=== PATIENT | female | born 1935 | race Caucasian/White ===

== ENCOUNTER 2022-02-15 15:56 | Inpatient (IN) | payer MEDICARE, BC, SELFPAY ==
[2022-02-15] VITALS (10 sets, daily range): BP systolic 111–161; BP diastolic 72–96; PULSE 70–83; RESP 16–20; TEMP 36.8–37.3; O2SAT 92–97; BMI 23.5; BMI 23.1
--- NOTE | 2022-02-15 16:52 | ED_ITS ---
HPI - General Adult General Time Seen by Provider: 16:53 Date Seen: 02/15/22 Chief complaint: Abdominal Pain Stated complaint: Bowel Distress Time Seen by Provider: 02/15/22 16:42 Source: patient History of Present Illness HPI narrative: Terri is a 86-year-old female past medical history includes IBS, hypertension, depression, atrial fibrillation, esophageal dysmotility, status post partial small-bowel resection, bilateral inguinal hernia repair and appendectomy and hysterectomy presents emerged department with family with abdominal pain. Patient states she went to bed last night feeling well, she woke up this morning around 4:00 a.m. with abdominal cramping, she had a bowel movement early this morning that was hard, no blood, she had to manually disimpact. She has had ongoing dry heaves throughout the day, no vomiting, she has not taken her medications. She has not been eating or drinking much today. She denies any urinary complaints, she denies any upper respiratory complaints. She states she has not been passing gas. No fevers, chills myalgias arthralgias, she denies any back pain. The pain is crampy in nature comes and goes, she feels like it is going to go away and then returns. She has minimal pain at this time. Related Data Home Medications Medication Instructions Recorded Confirmed amiodarone 200 mg tablet mg PO DAILY 02/14/22 02/14/22 apixaban 5 mg tablet 5 mg PO BID 02/14/22 02/14/22 cranberry concentrate-ascorbic cap PO 02/14/22 02/14/22 acid 140 mg-100 mg capsule (Cranberry Plus Vitamin C) dicyclomine 10 mg capsule 1 - 2 mg PO .Daily as needed PRN 02/14/22 02/14/22 cap estradiol 0.01% (0.1 mg/gram) 1 VAGINAL .Twice Weekly 02/14/22 02/14/22 vaginal cream furosemide 20 mg tablet mg PO DAILY 02/14/22 02/14/22 glucosamine sulfate 500 mg capsule 1,000 mg PO DAILY 02/14/22 02/14/22 hydrochlorothiazide 25 mg tablet mg PO DAILY 02/14/22 02/14/22 hydrocortisone 2.5 % rectal cream 2.5 ea TOPICAL BID 02/14/22 02/14/22 with applicator lactic acid applic TOPICAL 02/14/22 02/14/22 lisinopril 10 mg tablet mg PO DAILY 02/14/22 02/14/22 loperamide 2 mg capsule mg PO .As Needed PRN 02/14/22 02/14/22 oxybutynin chloride 10 mg 10 mg PO DAILY 02/14/22 02/14/22 tablet,extended release 24 hr polyethylene glycol 3350 17 g PO .Daily as needed PRN 02/14/22 02/14/22 gram/dose oral powder potassium chloride 20 mEq 20 meq PO BID 02/14/22 02/14/22 tablet,extended release(part/cryst) Allergies Allergy/AdvReac Type Severity Reaction Status Date / Time house dust Allergy Unknown Verified 02/15/22 16:14 Molds & Smuts Allergy Unknown Uncoded 02/15/22 16:14 Review of Systems Status of ROS: Reports: 10 or more systems reviewed and unremarkable except as noted in History and below [facility] Medical History History of depression Surgical History History of appendectomy History of bilateral inguinal hernia repair History of bilateral knee replacement History of cataract extraction History of section (2019) History of hysterectomy History of total hip replacement Social History Smoking Status: Former smoker Do you use any of these nicotine containing products: None Second hand tobacco smoke exposure: No How often do you have a drink containing alcohol: never AUDIT-C Alcohol total score: 0 Non-prescribed substance use: denies use Exam Const: Vital Signs, click to edit/add: Vital Signs - 24 hr 02/15/22 16:06 02/15/22 16:55 02/15/22 17:30 Temperature 98.7 F Pulse Rate [Pulse Oximeter] 75 70 73 Respiratory Rate 20 16 20 Blood Pressure [Le ft Upper Arm] 111/74 128/77 124/73 Pulse Oximetry 96 97 92 02/15/22 18:00 02/15/22 19:00 Temperature Pulse Rate [Pulse Oximeter] 72 78 Respiratory Rate 20 20 Blood Pressure [Le ft Upper Arm] 126/72 136/81 Pulse Oximetry 93 97 Common normals: no apparent distress and oriented x3 HENMT: Common normals: normocephalic Head and scalp: normocephalic Eye: Common normals: PERRL and EOMs intact bilaterally Pupil: PERRL Neck & C-Spine: Common normals: full ROM, no lymphadenopathy and supple Chest: Common normals: inspection of chest normal Resp: Common normals: normal respiratory effort and clear to auscultation bilaterally Auscultation: clear to auscultation bilaterally Cardio: Common normals: S1 normal heart sound and S2 normal heart sound Heart sounds: S1 normal and S2 normal GI: Common normals: soft to palpation Palpation: soft Other: Mild tenderness to palpation all quadrants, hypoactive bowel sounds : Common normals: no CVA tenderness Bladder/kidney exam: no CVA tenderness Back & Pelvis: Common normals: no CVA tenderness, thoracic and lumbar spine normal to inspection and no thoracic nor lumbar tenderness Extremity: Common normals: normal to inspection and full ROM Neuro: Common normals: oriented x3 and moves all extremities Course Course Hospital Course: 4:40 PM: Vitals are normal, workup will include IV peripheral, 125 mL maintenance fluids 0.9 normal saline, will obtain basic labs including CBC, CMP, lipase and CRP, for nausea 4 mg IV Zofran, patient has no pain at this time. Will await lab results to see if further imaging will be obtained. Differential diagnosis include aortic aneurysm, mesentery ischemia, bowel perforation, volvulus and bowel obstruction. Other considerations include IBD, IBS, pancreatitis hepatitis gastritis GERD diverticulitis pyelonephritis UTI renal stone ovarian cyst torsion as well as all etiologies 6:00 PM: Patient was updated on her lab results, CBC showed leukocytosis 50.5, neutrophil percentage of 94.8 and neutrophil # of 14.7, CRP negative, metabolic panel within normal limits, will obtain CT abdomen pelvis with IV contrast rule out obstruction, patient's pain has been controlled. 8:00 PM: Updated patient on imaging results, which show high-grade distal small-bowel obstruction with transition in the right lower quadrant probably due to adhesions there is slight twisting of the mesentery in the right lower quadrant with volvulus not completely excluded. Surgical consultation recommended. Also gastric wall thickening and mucosal enhancement along the body and the antrum of the stomach which is decompressed, findings could be seen with gastritis or peptic ulcer disease. Dr. Remi KWONG at 7:23 p.m. Spoke with surgery on-call she recommended admission to hospitalist, NG tube and bowel rest, this was explained to patient she was in agreement this plan. Reevaluation(s) Reevaluation #1: Call made to Dr. Rhonda KWONG hospitalists [facility] [employer] and he accepts care of the patient to a [facility] bed. All questions answered. Time: 20:51 Vital Signs Vital signs: Initial Vital Signs Temperature 98.7 F 02/15/22 16:06 Temperature Source Temporal Artery Scan 02/15/22 16:06 Pulse Rate 75 02/15/22 16:06 Pulse Rhythm 02/15/22 16:06 Respiratory Rate 20 02/15/22 16:06 Blood Pressure 111/74 02/15/22 16:06 Blood Pressure Mean 86 02/15/22 16:06 Blood Pressure Position Sitting 02/15/22 16:06 Pulse Oximetry 96 02/15/22 16:06 Oxygen Delivery Method 02/15/22 16:06 Vital Signs Temperature 98.7 F 02/15/22 16:06 Pulse Rate 75 02/15/22 16:06 Respiratory Rate 20 02/15/22 16:06 Blood Pressure 111/74 02/15/22 16:06 Pulse Oximetry 96 02/15/22 16:06 Temperature 98.7 F 02/15/22 16:06 Pulse Rate 78 02/15/22 19:00 Respiratory Rate 20 02/15/22 19:00 Blood Pressure 136/81 02/15/22 19:00 Pulse Oximetry 97 02/15/22 19:00 Medical Decision Making Lab Data Labs: Lab Results 02/15/22 02/15/22 Range/Units 17:00 17:07 WBC 15.52 H (4.50-11.00) K/uL RBC 4.48 (4.00-5.20) m/uL Hgb 14.4 (12.0-16.0) gm/dL Hct 42.1 (33.0-51.0) % MCV 94 (80-100) fL MCH 32 (26-34) pg MCHC 34 (32-36) gm/dL RDW Coeff of Trish 12.5 (11.5-15.5) % Plt Count 213 (140-440) K/uL Neut % (Auto) 94.8 H (42.0-72.0) % Lymph % (Auto) 2.3 L (20-44) % [place] % (Auto) 2.6 (0.0-11.0) % Eos % (Auto) 0.0 (0.0-7.0) % Baso % (Auto) 0.1 (0.0-3.0) % Neut # (Auto) 14.70 H (1.7-7.0) K/uL Lymph # (Auto) 0.40 L (0.90-2.90) K/uL [place] # (Auto) 0.40 (0.00-0.90) K/UL Eos # (Auto) 0.00 (0.00-0.50) K/uL Baso # (Auto) 0.00 (0.00-0.30) K/uL Abs Immat Gran (auto) 0.03 (0.00-0.30) K/uL Sodium 137 (135-149) mmol/L Potassium 4.0 (3.6-5.1) mmol/L Chloride 97 (96-114) mmol/L Carbon Dioxide 32 (20-32) mmol/L BUN 28 (7-30) mg/dL Creatinine 0.7 (0.5-1.5) mg/dL Estimated Creat Clear 39.27 Estimated GFR 84 ml/min Glucose 152 H (60-115) mg/dL Calcium 10.1 (8.4-10.6) mg/dL Total Bilirubin 0.9 (0.1-1.5) mg/dL AST 31 (12-35) U/L ALT 24 (4-35) U/L Alkaline Phosphatase 96 (40-150) U/L C-Reactive Protein < 0.5 L (0.5-1.0) mg/dL Total Protein 6.4 (6.0-8.3) g/dL Albumin 4.3 (3.3-5.0) g/dL Lipase 69 (23-300) U/L Discharge Plan Discharge Clinical Impression: Small bowel obstruction Prescriptions: No Action polyethylene glycol 3350 17 gram/dose powder PO .Daily as needed PRN0RF lactic acid Cream topical 0RF dicyclomine 10 mg capsule 1 - 2 mg PO .Daily as needed PRN0RF oxybutynin chloride 10 mg tablet extended release 24 hr 10 mg PO DAILY 0RF apixaban 5 mg tablet 5 mg PO BID 0RF loperamide 2 mg capsule PO .As Needed PRN0RF estradiol 0.01 % (0.1 mg/gram) cream 1 vaginal .Twice Weekly 0RF hydrochlorothiazide 25 mg tablet PO DAILY 0RF hydrocortisone 2.5 % cream with applicator 2.5 ea topical BID 0RF furosemide 20 mg tablet PO DAILY 0RF amiodarone 200 mg tablet PO DAILY 0RF lisinopril 10 mg tablet PO DAILY 0RF glucosamine sulfate 500 mg capsule 1,000 mg PO DAILY 0RF Cranberry Plus Vitamin C 140-100 mg capsule PO 0RF potassium chloride 20 mEq tablet,ER particles/crystals 20 meq PO BID 0RF Follow Up/Referrals: Arabella Rodríguez MD [Primary Care Provider] -
[2022-02-15] MEDS: 0.9 % SODIUM CHLORIDE 1000 ml 1,000 ML 125 ML IV ×2 (17:03→22:19)
[2022-02-15] MEDS: ONDANSETRON 2 MG/ML inj 4 MG IVP ×2 (17:03→21:17)
[2022-02-15 17:12] LABS: Basophils Percent Auto 0.1 % (0.0-3.0); Hematocrit 42.1 % (33.0-51.0); Hemoglobin* 14.4 gm/dL (12.0-16.0); Immature Granulocytes Abs Auto 0.03 K/uL (0.00-0.30); Lymphocytes Percent Auto 2.3 % (20-44); Mean Corpuscular HGB Conc 34 gm/dL (32-36); Mean Corpuscular Hemoglobin 32 pg (26-34); Mean Corpuscular Volume 94 fL (80-100); Monocytes Percent Auto 2.6 % (0.0-11.0); Neutrophils Percent Auto 94.8 % (42.0-72.0); Platelet Count* 213 K/uL (140-440); RDW Coefficient of Variation % 12.5 % (11.5-15.5); Red Blood Count 4.48 m/uL (4.00-5.20); White Blood Count* 15.52 K/uL (4.50-11.00)
[2022-02-15 17:26] LABS: Albumin* 4.3 g/dL (3.3-5.0); Chloride* 97 mmol/L (96-114); Sodium* 137 mmol/L (135-149)
[2022-02-15 17:28] LABS: Creatinine* 0.7 mg/dL (0.5-1.5)
[2022-02-15 17:29] LABS: Alkaline Phosphatase* 96 U/L (40-150); Aspartate Amino Transferase* 31 U/L (12-35); Bilirubin Total* 0.9 mg/dL (0.1-1.5); Blood Urea Nitrogen* 28 mg/dL (7-30); Carbon Dioxide* 32 mmol/L (20-32); Est. Creatinine Clearance* 39.27; Estimated Glomerular Filt Rate 84 ml/min; Glucose* 152 mg/dL (60-115); Lipase* 69 U/L (23-300); Total Protein* 6.4 g/dL (6.0-8.3)
[2022-02-15 17:30] LABS: Alanine Aminotransferase* 24 U/L (4-35); Calcium* 10.1 mg/dL (8.4-10.6)
[2022-02-15 17:39] LABS: C Reactive Protein* < 0.5 mg/dL (0.5-1.0)
[2022-02-15 17:40] LABS: Slide Review Reflex No
--- NOTE | 2022-02-15 17:59 | CRLHL7_ITS ---
For Patients: As a result of the Century Cures Act, medical imaging exams and procedure reports are released immediately into your electronic medical record. You may view this report before your referring provider. If you have questions, please contact your health care provider. Indication: Abdominal pain history of small-bowel obstruction Technique: Contrast enhanced CT abdomen and pelvis Comparison: CT abdomen and pelvis 06/28/2020 Findings: Heart size is normal basilar atelectasis. No significant effusion. The gastric body and antrum is decompressed however there is suggestive wall thickening and mucosal enhancement. There may be sludge and/or stones in the gallbladder. The liver otherwise is unremarkable the spleen, adrenal glands unremarkable no abdominal aortic aneurysm. Pancreas unremarkable. Right renal cyst there is a cortical thinning of the right kidney. Duplicated collecting systems. Renal cysts additional too small to characterize low-attenuation lesions. Right hip arthroplasty causes streak artifact. Urinary bladder unremarkable. Dilated fluid-filled small bowel loops measuring up to 3.5 cm. Decompressed distal small bowel loops with transition point in the right lower quadrant. Slight twisting of the mesentery in the right lower quadrant, see series 4 images 35 to 46 . There is no free air seen. Small amount of perihepatic ascites. Small bowel anastomosis left upper abdomen. No suspicious bony lesions. Impression: 1. High-grade distal small-bowel obstruction with transition in the RLQ probably due to adhesions however there is slight twisting of the mesentery in the right lower quadrantwith volvulus not completely excluded. Surgical consultation recommended results called to Dr. Moreno on 02/15/22 at 7:20pm. 2. Suggestion of gastric wall thickening and mucosal enhancement along the body in the antrum of the stomach which is decompressed. Findings could be seen with gastritis or peptic ulcer disease. Please note that all CT scans at this facility use dose modulation, iterative reconstruction, and/or weight-based dosing when appropriate to reduce radiation dose to as low as reasonably achievable. Dictated by Kindra Khalil MD @ 02/15/2022 7:23:09 PM (Electronically Signed)
--- NOTE | 2022-02-15 20:40 | ED.NURSE ---
Call to pt's daughter, Domingo ([phone]) to give an update. Pt speaking with daughter on portable phone.
--- NOTE | 2022-02-15 20:42 | PM.GSCN ---
History of Present Illness Consult details Consult date: 02/15/22 Narrative: Patient is a manpreet 86-year-old female who presented to the emergency department with a 2 day history worsening intermittent cramping abdominal pain. She states that she has been having the pain for few minutes at a time on and off the last couple days. This morning the pain increased in intensity causing her to come into the emergency department. Her last ?real bowel movement? was 2 days earlier. She did disimpact some hard stool this morning. She last passed gas this morning but none since. Denies any vomiting but does have some mild nausea. Her belly feels bloated to her. Patient does have a significant abdominal surgical history, which includes ruptured appendicitis as a child, hysterectomy, inguinal hernia repair and exploratory laparotomy with lysis of adhesions and small-bowel resection. She states that the exploratory laparotomy was done 2 years earlier. She is on a blood thinner, apixaban for atrial fibrillation She last took apixaban yesterday evening. She did not take any of her medications this morning. Review of Systems Status of ROS: Reports: 10 or more systems reviewed and unremarkable except as noted in History and below [facility] Medical History History of depression Surgical History History of appendectomy History of bilateral inguinal hernia repair History of bilateral knee replacement History of cataract extraction History of section (2019) History of hysterectomy History of total hip replacement Social History Smoking Status: Former smoker Do you use any of these nicotine containing products: None Second hand tobacco smoke exposure: No How often do you have a drink containing alcohol: never AUDIT-C Alcohol total score: 0 Non-prescribed substance use: denies use Meds Home Medications and Allergies Home Medications Medication Instructions Recorded Confirmed Type amiodarone 200 mg tablet mg PO DAILY 02/14/22 02/14/22 History apixaban 5 mg tablet 5 mg PO BID 02/14/22 02/14/22 History cranberry concentrate-ascorbic cap PO 02/14/22 02/14/22 History acid 140 mg-100 mg capsule (Cranberry Plus Vitamin C) dicyclomine 10 mg capsule 1 - 2 mg PO .Daily as needed PRN 02/14/22 02/14/22 History cap estradiol 0.01% (0.1 mg/gram) 1 VAGINAL .Twice Weekly 02/14/22 02/14/22 History vaginal cream furosemide 20 mg tablet mg PO DAILY 02/14/22 02/14/22 History glucosamine sulfate 500 mg capsule 1,000 mg PO DAILY 02/14/22 02/14/22 History hydrochlorothiazide 25 mg tablet mg PO DAILY 02/14/22 02/14/22 History hydrocortisone 2.5 % rectal cream 2.5 ea TOPICAL BID 02/14/22 02/14/22 History with applicator lactic acid applic TOPICAL 02/14/22 02/14/22 History lisinopril 10 mg tablet mg PO DAILY 02/14/22 02/14/22 History loperamide 2 mg capsule mg PO .As Needed PRN 02/14/22 02/14/22 History oxybutynin chloride 10 mg 10 mg PO DAILY 02/14/22 02/14/22 History tablet,extended release 24 hr polyethylene glycol 3350 17 g PO .Daily as needed PRN 02/14/22 02/14/22 History gram/dose oral powder potassium chloride 20 mEq 20 meq PO BID 02/14/22 02/14/22 History tablet,extended release(part/cryst) Allergies Allergy/AdvReac Type Severity Reaction Status Date / Time house dust Allergy Unknown Verified 02/15/22 16:14 Molds & Smuts Allergy Unknown Uncoded 02/15/22 16:14 Exam Narrative: Exam Narrative: General: Alert and oriented, lying in bed in mild discomfort. Nontoxic and no acute distress Pulmonary: Equal breath rise bilaterally, maintained on room air CV: Regular rhythm and rate, well perfused Abdomen: Distended abdomen, soft with some diffuse tenderness and mild guarding, no rebound. No evidence of peritonitis. Abdomen is tympanic with no bowel signs appreciated. Previously well-healed surgical scars apparent. Const: Vital Signs, click to edit/add: Vital Signs - 24 hr 02/15/22 16:06 02/15/22 16:55 02/15/22 17:30 Temperature 98.7 F Pulse Rate [Pulse Oximeter] 75 70 73 Respiratory Rate 20 16 20 Blood Pressure [Le ft Upper Arm] 111/74 128/77 124/73 Pulse Oximetry 96 97 92 02/15/22 18:00 02/15/22 19:00 Temperature Pulse Rate [Pulse Oximeter] 72 78 Respiratory Rate 20 20 Blood Pressure [Le ft Upper Arm] 126/72 136/81 Pulse Oximetry 93 97 Results Labs Labs: Abnormal lab results 02/15/22 02/15/22 Range/Units 17:00 17:07 WBC 15.52 H (4.50-11.00) K/uL Neut % (Auto) 94.8 H (42.0-72.0) % Lymph % (Auto) 2.3 L (20-44) % Neut # (Auto) 14.70 H (1.7-7.0) K/uL Lymph # (Auto) 0.40 L (0.90-2.90) K/uL Glucose 152 H (60-115) mg/dL C-Reactive Protein < 0.5 L (0.5-1.0) mg/dL Diabetes panel 02/15/22 Range/Units 17:07 Sodium 137 (135-149) mmol/L Potassium 4.0 (3.6-5.1) mmol/L Chloride 97 (96-114) mmol/L Carbon Dioxide 32 (20-32) mmol/L BUN 28 (7-30) mg/dL Creatinine 0.7 (0.5-1.5) mg/dL Glucose 152 H (60-115) mg/dL Calcium 10.1 (8.4-10.6) mg/dL AST 31 (12-35) U/L ALT 24 (4-35) U/L Alkaline Phosphatase 96 (40-150) U/L Total Protein 6.4 (6.0-8.3) g/dL Albumin 4.3 (3.3-5.0) g/dL Calcium panel 02/15/22 Range/Units 17:07 Calcium 10.1 (8.4-10.6) mg/dL Albumin 4.3 (3.3-5.0) g/dL Pituitary panel 02/15/22 Range/Units 17:07 Sodium 137 (135-149) mmol/L Potassium 4.0 (3.6-5.1) mmol/L Chloride 97 (96-114) mmol/L Carbon Dioxide 32 (20-32) mmol/L BUN 28 (7-30) mg/dL Creatinine 0.7 (0.5-1.5) mg/dL Glucose 152 H (60-115) mg/dL Calcium 10.1 (8.4-10.6) mg/dL Adrenal panel 02/15/22 Range/Units 17:07 Sodium 137 (135-149) mmol/L Potassium 4.0 (3.6-5.1) mmol/L Chloride 97 (96-114) mmol/L Carbon Dioxide 32 (20-32) mmol/L BUN 28 (7-30) mg/dL Creatinine 0.7 (0.5-1.5) mg/dL Glucose 152 H (60-115) mg/dL Calcium 10.1 (8.4-10.6) mg/dL Total Bilirubin 0.9 (0.1-1.5) mg/dL AST 31 (12-35) U/L ALT 24 (4-35) U/L Alkaline Phosphatase 96 (40-150) U/L Total Protein 6.4 (6.0-8.3) g/dL Albumin 4.3 (3.3-5.0) g/dL All other labs normal. Imaging Abdomen CT scan report/results: report reviewed and image reviewed Assessment and Plan Assessment and plan (1) Small bowel obstruction: Status: Acute Plan Patient is an 86-year-old female with evidence of high-grade small-bowel obstruction. This is likely secondary to adhesions given her surgical history. Vital signs stable in the emergency department and afebrile. Labs are significant for leukocytosis (15). A CT scan was obtained which shows a high-grade small bowel obstruction, transition in the right lower quadrant. This is likely secondary to adhesions but on imaging it was noted by the radiologist that there is some mild swirling of the mesentery bringing forward the question of possible volvulus. At this time the patient demonstrates some diffuse mild tenderness on exam but no evidence of peritonitis. She is also nontoxic in appearance. Will proceed with medical management and serial abdominal exams. Should patient clinically worsen, would not hesitate to proceeding to the operating room for an exploratory laparotomy. The hospitalist has been consulted and will help with management, appreciate their assistance. -NPO, IV fluid -NG tube to low intermittent suction -encourage ambulation -trend abdominal exam and labs, repeat CBC tomorrow morning -SCDs for DVT prophylaxis, continue to hold patient's therapeutic anticoagulation
--- NOTE | 2022-02-15 20:44 | W.PC.EDHO ---
Primary Language: Preferred Language: Orientation Status: [] Alert & Oriented [] Slight Confusion [] Known Dx Dementia Transfers By: [] Assist of 1 [] Assist of 2 [] Lift Active Medications Generic Name Dose Route Start Last Admin Trade Name Becky PRN Reason Stop Dose Admin Sodium Chloride 1,000 mls @ 125 mls/hr 02/15/22 16:43 02/15/22 20:00 0.9 % Sodium Chloride 1000 Ml IV Infused .Q8H KATJA Infusion Discontinued Medications Generic Name Dose Route Start Last Admin Trade Name Becky PRN Reason Stop Dose Admin Ondansetron HCl 4 mg 02/15/22 16:42 02/15/22 17:03 Ondansetron 2 Mg/Ml Inj IVP 02/15/22 16:43 4 mg ONCE ONE Administration Description of Symptoms ED Triage Present Problem reports that she has had nausea and vomiting since Description this am at 0400. has abd distress and pain. had a hard constipated stool this am. reports bowel obstruction in the past 2019. has had abd surgeries that has caused adhesions. unable to anything orally-gags and vomits. no fever. ED Triage Date of Onset of 02/14/22 Symptoms Female History Patient No Patient No Pain Pain Description [Lower Tender Abdomen] Pain Description [Lower Dull, Achy,Cramping,With Movement Abdomen] Pain Intensity [Lower Abdomen] 2 Pain Intensity [Lower Abdomen] 8 Pain Intensity 5 Pain Intensity 5 Pain Intensity 5 Pain Intensity 5 Pain Scale Used [Lower Abdomen Numeric (1 - 10) ] Pain Scale Used [Lower Abdomen Numeric (1 - 10) ] Pain Scale Used Numeric (1 - 10) Pain Scale Used Numeric (1 - 10) Pain Scale Used Numeric (1 - 10) Pain Scale Used Numeric (1 - 10) Pain Site Observation [Lower WNL Abdomen] IV Insertion/Site Date of IV Line Insertion [ 02/15/22 left anticubital] Oxygen Administration Pulse Oximetry 97 Pulse Oximetry 93 Pulse Oximetry 92 Pulse Oximetry 97 Pulse Oximetry 96 Oxygen Delivery Method Room Air Oxygen Delivery Method Room Air Oxygen Delivery Method Room Air Oxygen Delivery Method Room Air Oxygen Delivery Method Room Air
[2022-02-15] MEDS: MORPHINE 2 MG/ML inj IVP (21:17)
--- NOTE | 2022-02-15 21:32 | PM.IMHP1 ---
Hospitalist- H&P: HPI History of Present Illness Time Seen by Provider: 21:00 Date Seen: 02/15/22 Chief complaint: Bowel Distress Narrative: Terri Bryson is a 86 year old woman who was in her usual state of health up until a couple of days ago. Couple days ago she started having abdominal discomfort with occasional nausea. Last normal bowel movement was yesterday. She had minimal gas and stool earlier this morning. No melena or hematochezia. This morning she awoke around 4:00 a.m. with abdominal cramping. Abdominal discomfort and retching progressively worsened throughout the day. Has not taken her medicines. Has not had anything to eat or drink. Not passing any gas or stool since this morning. Denies dysuria, urgency, frequency, or hematuria. Denies cough for shortness of breath. No chest pain, heaviness, tightness, or pain. Has not had fevers, rigors, or diaphoresis. Has not had myalgias or arthralgias. Review of Systems Status of ROS: Reports: 6 or more systems reviewed and unremarkable except as noted in History and below Narrative: Lives at home with her daughter. Is a . Patient tells me that she is live for too long. She agrees with efforts to help her through this episode of high-grade small-bowel obstruction. She tells me that she had some keratosis lesions on her skin burned off yesterday including 1 on the bridge of her nose. [facility] Medical History (Updated 02/15/22 @ 21:51 by Jaret Ellis MD) Atrial fibrillation (03/08/21) Cysts of both ovaries Dry skin Esophageal dysmotility Health care directive on file (12/12/17) History of depression Hypertension Irritable bowel syndrome Overactive bladder Small bowel obstruction Stress incontinence of urine Surgical History History of appendectomy History of bilateral inguinal hernia repair History of bilateral knee replacement History of cataract extraction History of section (2019) History of hysterectomy History of total hip replacement Status post small bowel resection Social History Smoking Status: Former smoker Do you use any of these nicotine containing products: None Second hand tobacco smoke exposure: No How often do you have a drink containing alcohol: never AUDIT-C Alcohol total score: 0 Non-prescribed substance use: denies use Meds Home Medications and Allergies Home Medications Medication Instructions Recorded Confirmed Type amiodarone 200 mg tablet mg PO DAILY 02/14/22 02/14/22 History apixaban 5 mg tablet 5 mg PO BID 02/14/22 02/14/22 History cranberry concentrate-ascorbic cap PO 02/14/22 02/14/22 History acid 140 mg-100 mg capsule (Cranberry Plus Vitamin C) dicyclomine 10 mg capsule 1 - 2 mg PO .Daily as needed PRN 02/14/22 02/14/22 History cap estradiol 0.01% (0.1 mg/gram) 1 VAGINAL .Twice Weekly 02/14/22 02/14/22 History vaginal cream furosemide 20 mg tablet mg PO DAILY 02/14/22 02/14/22 History glucosamine sulfate 500 mg capsule 1,000 mg PO DAILY 02/14/22 02/14/22 History hydrochlorothiazide 25 mg tablet mg PO DAILY 02/14/22 02/14/22 History hydrocortisone 2.5 % rectal cream 2.5 ea TOPICAL BID 02/14/22 02/14/22 History with applicator lactic acid applic TOPICAL 02/14/22 02/14/22 History lisinopril 10 mg tablet mg PO DAILY 02/14/22 02/14/22 History loperamide 2 mg capsule mg PO .As Needed PRN 02/14/22 02/14/22 History oxybutynin chloride 10 mg 10 mg PO DAILY 02/14/22 02/14/22 History tablet,extended release 24 hr polyethylene glycol 3350 17 g PO .Daily as needed PRN 02/14/22 02/14/22 History gram/dose oral powder potassium chloride 20 mEq 20 meq PO BID 02/14/22 02/14/22 History tablet,extended release(part/cryst) Home Medication Comments: Has not taking amiodarone for about 6 weeks. She states that caused her to feel extremely fatigued. She has been cautioned that her atrial fibrillation may recur. Continues to be anticoagulated on the apixaban 5 mg twice daily. Allergies Allergy/AdvReac Type Severity Reaction Status Date / Time house dust Allergy Unknown Verified 02/15/22 16:14 Molds & Smuts Allergy Unknown Uncoded 02/15/22 16:14 Exam Narrative: Exam Narrative: Appears uncomfortable. At times has dry heaves as I am examining her. She is able to ambulate from her exam room in the emergency department to the bathroom in the emergency department. Has somewhat of a broad-based gait. Aside from her chronic hearing deficit no other focal motor neurologic deficits. No tremor or asterixis or ataxia. Skin is dry, patches of actinic and seborrheic keratosis. Midline trachea. Normal thyroid. Neck supple. Lungs are clear to auscultation. Heart tones with regular rhythm. Normal S1-S2. Abdomen with hypoactive bowel sounds. Mild to moderately tender. No rebound or guarding. Extremities without edema. Const: Vital Signs, click to edit/add: Vital Signs - 24 hr 02/15/22 16:06 02/15/22 16:55 02/15/22 17:30 Temperature 98.7 F Pulse Rate [Pulse Oximeter] 75 70 73 Respiratory Rate 20 16 20 Blood Pressure [Le ft Upper Arm] 111/74 128/77 124/73 Pulse Oximetry 96 97 92 02/15/22 18:00 02/15/22 19:00 Temperature Pulse Rate [Pulse Oximeter] 72 78 Respiratory Rate 20 20 Blood Pressure [Le ft Upper Arm] 126/72 136/81 Pulse Oximetry 93 97 Hospitalist - H&P: Result Labs Labs: Short CBC 02/15/22 Range/Units 17:00 WBC 15.52 H (4.50-11.00) K/uL Hgb 14.4 (12.0-16.0) gm/dL Hct 42.1 (33.0-51.0) % Plt Count 213 (140-440) K/uL BMP 02/15/22 17:07 Sodium 137 Potassium 4.0 Chloride 97 Carbon Dioxide 32 BUN 28 Creatinine 0.7 Glucose 152 H Calcium 10.1 Liver Function 02/15/22 Range/Units 17:07 Total Bilirubin 0.9 (0.1-1.5) mg/dL AST 31 (12-35) U/L ALT 24 (4-35) U/L Alkaline Phosphatase 96 (40-150) U/L Albumin 4.3 (3.3-5.0) g/dL Imaging CT scan - abdomen: Attestation: I have reviewed the pertinent imaging results. Radiologist's impression: ?1. High-grade distal small-bowel obstruction with transition in the RLQ probably due to adhesions however there is slight twisting of the mesentery in the right lower quadrantwith volvulus not completely excluded. Surgical consultation recommended results called to Dr. Moreno on 02/15/22 at 7:20pm. 2. Suggestion of gastric wall thickening and mucosal enhancement along the body in the antrum of the stomach which is decompressed. Findings could be seen with gastritis or peptic ulcer disease. Assessment and Plan Assessment and plan (1) Small bowel obstruction: Problem comment: This is a recurrent problem. Status post partial small-bowel resection 2019. Has had multiple abdominal surgeries. Likely 02/15/2022 presentation represents adhesions once again. Status: Acute Assessment and Plan: 1. Discuss with Dr. Darling and Dr. Nascimento. 2. Agree with plan to optimize medical management if at all possible an effort to overt need for repeat surgery. 3. Nasogastric tube to low and intermittent suctioning. 4. NPO. IV fluids. Encourage ambulation and movement as much as possible. 5. As needed analgesics and antiemetics. 6. Hold multiple medications. 7. I have asked Dr. Nascimento, general surgeon, to follow along with us to manage this particular problem. 8. Follow labs. (2) Hypertension: Status: Acute Assessment and Plan: 1. Hold antihypertensives for now. May need to consider IV ANY-inhibitor if warranted. (3) History of atrial fibrillation: Status: Acute Assessment and Plan: 1. Monitor closely for recurrence of atrial fibrillation. Patient stopped amiodarone about 6 weeks ago due to extreme fatigue in association with use of the same. Fatigue is improved since discontinuation of the amiodarone. May need to consider some other anti-arhythmic if necessary as well as rate control. (4) Chronic anticoagulation: Status: Acute Assessment and Plan: 1. For now will allow the apixaban anticoagulation level drift with time. Will not continue with apixaban at this time. Consider resuming apixaban in the future should her small-bowel obstruction resolved. Plan 1. Reviewed impression with patient. Answered her questions. She is agreeable to above stated plans and recommendations.
--- NOTE | 2022-02-15 21:33 | CRLHL7_ITS ---
For Patients: As a result of the Century Cures Act, medical imaging exams and procedure reports are released immediately into your electronic medical record. You may view this report before your referring provider. If you have questions, please contact your health care provider. INDICATION: Post NG tube placement.. TECHNIQUE: Chest 1 views. COMPARISON: None. FINDINGS: Cardiovascular and mediastinum: Mild cardiomegaly. Likely atrial exclusion clip. Lungs and pleural spaces: Lungs are clear. No sign of infiltrate or mass. No sign of pleural effusion. No pneumothorax. Bones and soft tissues: No significant findings. Partially visualized contrast opacification of the left renal collecting system. Mild gaseous distention of the stomach and visualized bowel loops. Lines and tubes: NG tube is identified with distal tip and side port within the gastric body. IMPRESSION: NG tube distal tip and side port terminate in the gastric body.. Dictated by Oma Norman MD @ 02/15/2022 10:50:37 PM (Electronically Signed)
[2022-02-15 21:43] LABS: SARS PCR* Negative SARS-CoV-2 (Negative)
[2022-02-16] VITALS (7 sets, daily range): BP systolic 116–144; BP diastolic 69–79; PULSE 57–82; RESP 16–18; TEMP 36.6–37.4; O2SAT 93–96
[2022-02-16] MEDS: phenoL 1.4 % THROAT SPRAY 1 SPRAY MUCOUS MEM (02:15)
[2022-02-16] MEDS: MORPHINE 2 MG/ML inj IVP ×4 (02:15→11:31)
--- NOTE | 2022-02-16 05:34 | PC.NURSE ---
Pt is friendly and cooperative. VSS. BT are hypo. She has an NG that has put out minimal drainage. What little she has taken in in ice chips and been taken out via the NG. She is up with 1 assist and walker to the Bathroom. Received 2mg of Morphine x1 this shift for lower abdominal pain.
[2022-02-16] MEDS: 0.9 % SODIUM CHLORIDE 1000 ml 1,000 ML 125 ML IV ×3 (06:08→22:59)
[2022-02-16 07:15] LABS: HCO3 VBG 30 mmol/L (21-28); PCO2 VBG 44 mmHG (40-50); PO2 VBG 84.4 mmHG (25-47); pH VBG 7.442 (7.32-7.43)
[2022-02-16 07:20] LABS: Basophils Percent Auto 0.1 % (0.0-3.0); Eosinophils Percent Auto 0.1 % (0.0-7.0); Hematocrit 38.8 % (33.0-51.0); Hemoglobin* 13.2 gm/dL (12.0-16.0); Immature Granulocytes Abs Auto 0.01 K/uL (0.00-0.30); Lymphocytes Percent Auto 4.3 % (20-44); Mean Corpuscular HGB Conc 34 gm/dL (32-36); Mean Corpuscular Hemoglobin 32 pg (26-34); Mean Corpuscular Volume 94 fL (80-100); Monocytes Percent Auto 11.8 % (0.0-11.0); Neutrophils Percent Auto 83.6 % (42.0-72.0); Platelet Count* 176 K/uL (140-440); RDW Coefficient of Variation % 12.7 % (11.5-15.5); Red Blood Count 4.11 m/uL (4.00-5.20); White Blood Count* 12.61 K/uL (4.50-11.00)
[2022-02-16 07:52] LABS: Slide Review Reflex No
--- NOTE | 2022-02-16 08:24 | P.IMPN_ITS ---
Progress Note: A&P Assessment and plan (1) Small bowel obstruction: Problem details: This is a recurrent problem. Status post partial small-bowel resection 2019. Has had multiple abdominal surgeries. Likely 02/15/2022 presentation represents adhesions once again. Status: Acute Assessment and Plan: Will continue symptomatic treatment with IV hydration and pain control with NG tube in place. General surgery consulting. (2) Hypertension: Status: Acute Assessment and Plan: Vital signs stable at this time. (3) History of atrial fibrillation: Status: Acute Assessment and Plan: Will plan to resume amiodarone and touch base with General surgery about apixaban. (4) Chronic anticoagulation: Status: Acute Assessment and Plan: As above. Subjective Time Seen by Provider: 08:24 Date Seen: 02/16/22 Interval history: Patient is a a 86-year-old woman who presented yesterday for recurrent small- bowel obstruction. CT scan shows high-grade obstruction with no signs of perforation. Patient is resting comfortably this morning although still not having any bowel movements or flatus. Her pain is under better control in G- tube is in place. Patient currently has room oral medications including her amiodarone and apixaban on hold both of which he takes for atrial fibrillation. Exam Narrative: Exam Narrative: EXAM GENERAL: Patient appears comfortable and well. NG tube in place. EYES: No scleral icterus. LYMPH: No supraclavicular or cervical lymphadenopathy. SKIN: Visible skin seen during exam normal or with benign process only. EXT: No dependent lower extremity pedal edema. HEART: Regular rate and rhythm with no murmurs, rubs, or gallops. LUNGS: Clear to auscultation bilaterally with no crackles or wheezes. ABD: Soft with hypoactive bowel sounds. PSYCH: Good eye contact, speech is not pressured. Const: Vital Signs, click to edit/add: Vital Signs - 24 hr 02/15/22 16:06 02/15/22 16:55 02/15/22 17:30 Temperature 98.7 F Pulse Rate [Pulse Oximeter] 75 70 73 Pulse Rate [Right Radial] Respiratory Rate 20 16 20 Blood Pressure [Le ft Upper Arm] 111/74 128/77 124/73 Blood Pressure [Ri ght Arm] Pulse Oximetry 96 97 92 02/15/22 18:00 02/15/22 19:00 02/15/22 19:30 Temperature Pulse Rate [Pulse Oximeter] 72 78 77 Pulse Rate [Right Radial] Respiratory Rate 20 20 20 Blood Pressure [Le ft Upper Arm] 126/72 136/81 141/84 H Blood Pressure [Ri ght Arm] Pulse Oximetry 93 97 95 02/15/22 20:00 02/15/22 20:30 02/15/22 22:21 Temperature 98.2 F Pulse Rate [Pulse Oximeter] 83 81 Pulse Rate [Right Radial] 80 Respiratory Rate 20 18 16 Blood Pressure [Le ft Upper Arm] 142/84 H 161/96 H Blood Pressure [Ri ght Arm] 155/91 H Pulse Oximetry 97 95 96 02/15/22 23:00 02/16/22 03:00 Temperature 99.2 F 99.3 F Pulse Rate [Pulse Oximeter] Pulse Rate [Right Radial] 80 82 Respiratory Rate 16 16 Blood Pressure [Le ft Upper Arm] Blood Pressure [Ri ght Arm] 144/85 H 144/79 H Pulse Oximetry 94 96 Labs Labs: Laboratory Results - last 24 hr 02/15/22 02/15/22 02/15/22 17:00 17:07 20:35 WBC 15.52 H RBC 4.48 Hgb 14.4 Hct 42.1 MCV 94 MCH 32 MCHC 34 RDW Coeff of Trish 12.5 Plt Count 213 Neut % (Auto) 94.8 H Lymph % (Auto) 2.3 L [place] % (Auto) 2.6 Eos % (Auto) 0.0 Baso % (Auto) 0.1 Neut # (Auto) 14.70 H Lymph # (Auto) 0.40 L [place] # (Auto) 0.40 Eos # (Auto) 0.00 Baso # (Auto) 0.00 Abs Immat Gran (auto) 0.03 VBG pH VBG pCO2 VBG pO2 VBG HCO3 Sodium 137 Potassium 4.0 Chloride 97 Carbon Dioxide 32 BUN 28 Creatinine 0.7 Estimated Creat Clear 39.27 Estimated GFR 84 Glucose 152 H Calcium 10.1 Total Bilirubin 0.9 AST 31 ALT 24 Alkaline Phosphatase 96 C-Reactive Protein < 0.5 L Total Protein 6.4 Albumin 4.3 Lipase 69 SARS-CoV-2 (PCR) Negative SARS-CoV-2 02/16/22 02/16/22 06:16 06:16 WBC 12.61 H RBC 4.11 Hgb 13.2 Hct 38.8 MCV 94 MCH 32 MCHC 34 RDW Coeff of Trish 12.7 Plt Count 176 Neut % (Auto) 83.6 H Lymph % (Auto) 4.3 L [place] % (Auto) 11.8 H Eos % (Auto) 0.1 Baso % (Auto) 0.1 Neut # (Auto) 10.50 H Lymph # (Auto) 0.50 L [place] # (Auto) 1.50 H Eos # (Auto) 0.00 Baso # (Auto) 0.00 Abs Immat Gran (auto) 0.01 VBG pH 7.442 H VBG pCO2 44 VBG pO2 84.4 H VBG HCO3 30 H Sodium Potassium Chloride Carbon Dioxide BUN Creatinine Estimated Creat Clear Estimated GFR Glucose Calcium Total Bilirubin AST ALT Alkaline Phosphatase C-Reactive Protein Total Protein Albumin Lipase SARS-CoV-2 (PCR)
[2022-02-16 08:27] LABS: Chloride* 104 mmol/L (96-114)
[2022-02-16 08:28] LABS: Albumin* 3.5 g/dL (3.3-5.0); Potassium* 4.2 mmol/L (3.6-5.1); Sodium* 137 mmol/L (135-149)
[2022-02-16 08:30] LABS: Creatinine* 0.5 mg/dL (0.5-1.5); Est. Creatinine Clearance* 39.27; Estimated Glomerular Filt Rate 91 ml/min
[2022-02-16 08:31] LABS: Blood Urea Nitrogen* 31 mg/dL (7-30); Calcium* 8.7 mg/dL (8.4-10.6); Carbon Dioxide* 27 mmol/L (20-32); Glucose* 121 mg/dL (60-115); Phosphorus* 4.2 mg/dL (2.5-4.5)
[2022-02-16 08:32] LABS: Magnesium* 2.1 mg/dL (1.5-2.6)
[2022-02-16 08:34] LABS: C Reactive Protein* 1.9 mg/dL (0.5-1.0)
[2022-02-16] MEDS: SODIUM CHLORIDE 0.9 % (FLUSH) 10 ML SYRINGE 5 ML IVF ×2 (08:59→11:32)
[2022-02-16] MEDS: OXYBUTYNIN CHLORIDE 5 MG TABLET 10 MG PO (09:00)
[2022-02-16] MEDS: ONDANSETRON 2 MG/ML inj 4 MG IVP (09:10)
[2022-02-16] MEDS: AMIODARONE 200 MG TABLET PO (09:14)
--- NOTE | 2022-02-16 12:03 | PC.NURSE ---
Addendum entered by Sanford Peterson RN 02/16/22 13:31: Gastric contents from NG appearing more green in color vs. clear since withdrawing tube. BS continue to be hypoactive. pt currently sleeping in room. Original Note: Patient pleasant and cooperative. dtr brought in head charger for hearing aides, pt very [place]. pt denied nausea initially this AM however after Morphine admin pt nauseated. zofran given with aromatherapy patch. Dilaudid given around q2h at this time for pain and discomfort. pt also has throat spray. NG to LIS initially measured at 63. Nascimento in to see pt at bedside and gave VO to withdraw NG 3cm and flush to assure no clogging in tube d/t clear output from NG and little to no output for dayshift. overnight patient put out 250 cc's of clear liquid. BS hypoactive. abd. tender. pt tolerating some ice chips and understands this is to be spread out. dtr at bedside. pt up to BR with PT this AM. steady on feet and moving well. one dose of amiodarone given this AM orally, pt verbalized her strategic sourcing consultant took her off of this med d/t side effects of not feeling well. This was discontinued then after that one dose was given. otherwise oxybutinin given this AM- tube was clamped x30 minutes with this and pt tolerated well aside from slight nausea.
--- NOTE | 2022-02-16 12:37 | PM.GSPN ---
Subjective Subjective Date Seen: 02/16/22 Interval history: Patient is doing okay this morning. She thinks that her abdominal pain is about the same and comes and goes. She has not yet passed gas. She does report some mild nausea, no emesis. Exam Narrative: Exam Narrative: General: Alert and oriented, no acute distress, lying comfortably in bed. Abdomen: Mild distension, soft, no guarding or rebound, mild tenderness but no peritonitis. Const: Vital Signs, click to edit/add: Vital Signs - 24 hr 02/15/22 16:06 02/15/22 16:55 02/15/22 17:30 Temperature 98.7 F Pulse Rate [Pulse Oximeter] 75 70 73 Pulse Rate [Right Radial] Respiratory Rate 20 16 20 Blood Pressure [Le ft Upper Arm] 111/74 128/77 124/73 Blood Pressure [Ri ght Arm] Pulse Oximetry 96 97 92 02/15/22 18:00 02/15/22 19:00 02/15/22 19:30 Temperature Pulse Rate [Pulse Oximeter] 72 78 77 Pulse Rate [Right Radial] Respiratory Rate 20 20 20 Blood Pressure [Le ft Upper Arm] 126/72 136/81 141/84 H Blood Pressure [Ri ght Arm] Pulse Oximetry 93 97 95 02/15/22 20:00 02/15/22 20:30 02/15/22 22:21 Temperature 98.2 F Pulse Rate [Pulse Oximeter] 83 81 Pulse Rate [Right Radial] 80 Respiratory Rate 20 18 16 Blood Pressure [Le ft Upper Arm] 142/84 H 161/96 H Blood Pressure [Ri ght Arm] 155/91 H Pulse Oximetry 97 95 96 02/15/22 23:00 02/16/22 03:00 02/16/22 07:00 Temperature 99.2 F 99.3 F 98.2 F Pulse Rate [Pulse Oximeter] Pulse Rate [Right Radial] 80 82 78 Respiratory Rate 16 16 16 Blood Pressure [Le ft Upper Arm] Blood Pressure [Ri ght Arm] 144/85 H 144/79 H 117/77 Pulse Oximetry 94 96 93 02/16/22 08:00 02/16/22 11:00 Temperature 98.0 F Pulse Rate [Pulse Oximeter] Pulse Rate [Right Radial] 78 75 Respiratory Rate 16 16 Blood Pressure [Le ft Upper Arm] Blood Pressure [Ri ght Arm] 129/71 Pulse Oximetry 94 Documenting provider has reviewed patient's vital signs: yes Labs/Imaging Labs Labs: WBC 12 Progress Note: A&P Assessment and plan (1) Small bowel obstruction: Status: Acute Assessment and Plan: Patient is hospital day 2 small bowel obstruction. An NG tube was placed in the emergency department. Output has been minimal since being on the floor. Nursing did pullback 3 cm on the tube and flush it without difficulty. Would continue with it in place. Patient denies any emesis, some mild nausea. Abdominal exam is improved compared to last night. Will continue with medical management at this time. -NPO, IV fluids -NG to low intermittent suction -IV pain meds as needed, use sparingly -encourage ambulation, SCDs okay for Lovenox if needed per hospitalist for DVT prophylaxis Will continue to follow the patient closely. Please call with any acute clinical changes, questions or concerns.
[2022-02-17 03:30] VITALS: BP 103/56; PULSE 118; RESP 16; TEMP 36.7; O2SAT 92
--- NOTE | 2022-02-17 05:51 | PC.NURSE ---
[id number] Pt doing well, ambulated halls x2 this shift, elyssa N/V, NG hooked up to LIS.
[2022-02-17 06:54] LABS: Basophils Absolute Auto 0.02 K/uL (0.00-0.30); Basophils Percent Auto 0.4 % (0.0-3.0); Eosinophils Absolute Auto 0.04 K/uL (0.00-0.50); Eosinophils Percent Auto 0.9 % (0.0-7.0); Hematocrit 34.5 % (33.0-51.0); Hemoglobin* 11.5 gm/dL (12.0-16.0); Immature Granulocytes Abs Auto 0.01 K/uL (0.00-0.30); Lymphocytes Absolute Auto 0.93 K/uL (0.90-2.90); Lymphocytes Percent Auto 20.6 % (20-44); Mean Corpuscular HGB Conc 33 gm/dL (32-36); Mean Corpuscular Hemoglobin 32 pg (26-34); Mean Corpuscular Volume 97 fL (80-100); Monocytes Percent Auto 19.5 % (0.0-11.0); Neutrophils Absolute Auto 2.64 K/uL (1.7-7.0); Neutrophils Percent Auto 58.4 % (42.0-72.0); Platelet Count* 146 K/uL (140-440); RDW Coefficient of Variation % 13.1 % (11.5-15.5); Red Blood Count 3.55 m/uL (4.00-5.20); White Blood Count* 4.52 K/uL (4.50-11.00)
[2022-02-17 06:56] LABS: Slide Review Reflex No
[2022-02-17 07:45] VITALS: BP 122/72; PULSE 71; RESP 16; TEMP 36.6; O2SAT 92
[2022-02-17] MEDS: 0.9 % SODIUM CHLORIDE 1000 ml 1,000 ML 125 ML IV ×3 (08:09→23:33)
--- NOTE | 2022-02-17 09:40 | PM.IMPN1 ---
Progress Note: A&P Assessment and plan (1) Small bowel obstruction: Status: Acute Assessment and Plan: Patient seems to be making progress with regards to her bowel obstruction. She is passing flatus to limited extent and has a much softer abdomen. Will continue watchful waiting with NG tube in place of following General surgery's recommendations. Will try to ambulate her today and watch for signs of clinical worsening. She appears to be improving. Subjective Time Seen by Provider: 09:40 Date Seen: 02/17/22 Interval history: Patient is beginning to show signs of improvement. She is passing air per rectum. She has had no fever chills. Her white blood cell count has fallen from 12.6-4.5 she does have elevation this morning in her CRP of 1.9 however her creatinine went from 2.4-2.2. He is feeling better and has no abdominal pain. Exam Narrative: Exam Narrative: EXAM GENERAL: Patient appears comfortable and well. EYES: No scleral icterus. LYMPH: No supraclavicular or cervical lymphadenopathy. SKIN: Visible skin seen during exam normal or with benign process only. EXT: No dependent lower extremity pedal edema. HEART: Regular rate and rhythm with no murmurs, rubs, or gallops. LUNGS: Clear to auscultation bilaterally with no crackles or wheezes. ABD: Soft, non tender, non distended. Hypoactive but present bowel sounds. PSYCH: Good eye contact, speech is not pressured. Const: Vital Signs, click to edit/add: Vital Signs - 24 hr 02/16/22 11:00 02/16/22 15:00 02/16/22 19:30 Temperature 98.0 F 98.8 F 97.9 F Pulse Rate [Right Radial] 75 57 L 76 Respiratory Rate 16 18 16 Blood Pressure [Ri ght Arm] 129/71 116/69 118/70 Pulse Oximetry 94 96 95 02/16/22 23:29 02/17/22 03:30 Temperature 97.9 F 98.0 F Pulse Rate [Right Radial] 76 118 H Respiratory Rate 16 16 Blood Pressure [Ri ght Arm] 118/70 103/56 L Pulse Oximetry 95 92 Labs Labs: Laboratory Results - last 24 hr 02/17/22 05:35 WBC 4.52 RBC 3.55 L Hgb 11.5 L Hct 34.5 MCV 97 MCH 32 MCHC 33 RDW Coeff of Trish 13.1 Plt Count 146 Neut % (Auto) 58.4 Lymph % (Auto) 20.6 [place] % (Auto) 19.5 H Eos % (Auto) 0.9 Baso % (Auto) 0.4 Neut # (Auto) 2.64 Lymph # (Auto) 0.93 [place] # (Auto) 0.90 Eos # (Auto) 0.04 Baso # (Auto) 0.02 Abs Immat Gran (auto) 0.01
[2022-02-17] MEDS: OXYBUTYNIN CHLORIDE 5 MG TABLET 10 MG PO (10:28)
[2022-02-17] MEDS: SODIUM CHLORIDE 0.9 % (FLUSH) 10 ML SYRINGE 5 ML IVF (10:29)
[2022-02-17 12:00] VITALS: BP 129/80; PULSE 74; RESP 16; TEMP 36.6; O2SAT 92
--- NOTE | 2022-02-17 12:53 | PM.GSPN ---
Subjective Subjective Date Seen: 02/17/22 Interval history: Patient is doing well this morning. Her abdominal pain is improved, she is not feels distended. She did pass gas this morning. She denies any significant appetite. No reported nausea or vomiting. She continues to ambulate the halls. Exam Narrative: Exam Narrative: General: Alert and oriented, no acute distress. Lying comfortably in bed. Abdomen: Soft, nontender, nondistended with no guarding or rebound. Const: Vital Signs, click to edit/add: Vital Signs - 24 hr 02/16/22 15:00 02/16/22 19:30 02/16/22 23:29 Temperature 98.8 F 97.9 F 97.9 F Pulse Rate [Right Radial] 57 L 76 76 Respiratory Rate 18 16 16 Blood Pressure [Ri ght Arm] 116/69 118/70 118/70 Pulse Oximetry 96 95 95 02/17/22 03:30 Temperature 98.0 F Pulse Rate [Right Radial] 118 H Respiratory Rate 16 Blood Pressure [Ri ght Arm] 103/56 L Pulse Oximetry 92 Progress Note: A&P Assessment and plan (1) Small bowel obstruction: Status: Acute Assessment and Plan: Patient is hospital day 2. For small-bowel obstruction. She has started to pass gas and her abdominal exam has improved. Her NG tube was clamped this morning for medications, will continue with a clamping trial and possible removal later this afternoon. Continue with just sips and ice chips. Encourage ambulation.
[2022-02-17 16:10] VITALS: BP 116/66; PULSE 64; RESP 16; O2SAT 97
[2022-02-17 19:03] VITALS: BP 131/72; PULSE 64; RESP 16; TEMP 36.6; O2SAT 98
--- NOTE | 2022-02-17 22:25 | PC.NURSE ---
Shift [id number]- Patient denies pain or nausea throughout shift. MD sees patient and removes NG and verbally orders sips of clears. She is tolerating this well. She is motivated and up to walk in erazo with gait belt and assist of 1. Bowel sounds are active and she is passing gas.
[2022-02-17 23:30] VITALS: BP 140/86; PULSE 70; RESP 16; TEMP 36.8; O2SAT 95
[2022-02-18 05:00] VITALS: BP 114/67; PULSE 62; RESP 16; TEMP 37.3; O2SAT 90
--- NOTE | 2022-02-18 05:09 | PC.NURSE ---
Shift note: The pt has been pleasant and cooperative. The pt has been denying nausea, vomiting, abdominal pain throughout the night. She stated that she has been tolerating sips of clears. She said she has been passing flatus. No abdominal distension noted. The pt appeared without any distress.
[2022-02-18] MEDS: 0.9 % SODIUM CHLORIDE 1000 ml 1,000 ML 125 ML IV ×2 (07:33→15:38)
[2022-02-18 08:14] VITALS: BP 138/80; PULSE 62; RESP 14; TEMP 36.6; O2SAT 96
[2022-02-18] MEDS: OXYBUTYNIN CHLORIDE 5 MG TABLET 10 MG PO (08:44)
[2022-02-18] MEDS: bisacodyL 5 MG TABLET DR 10 MG PO (08:44)
[2022-02-18] MEDS: SODIUM CHLORIDE 0.9 % (FLUSH) 10 ML SYRINGE 5 ML IVF (08:46)
--- NOTE | 2022-02-18 08:58 | PC.NURSE ---
Critical value reported by lab - Potassium 2.8, Dr. Campos notified.
--- NOTE | 2022-02-18 09:31 | PM.IMPN1 ---
Progress Note: A&P Assessment and plan (1) Small bowel obstruction: Status: Acute (2) Hypokalemia: Status: Acute Assessment and Plan: Check magnesium. Replace potassium orally. (3) History of atrial fibrillation: Status: Acute (4) Chronic anticoagulation: Problem details: apixaban for afib Status: Acute Assessment and Plan: restart apixaban (5) Hypertension: Status: Acute Assessment and Plan: restart home antihypertensives (6) Esophageal dysmotility: Status: Acute Plan VTE prophylaxis with Lai's toes. Subjective Time Seen by Provider: 09:31 Date Seen: 02/18/22 Exam Narrative: Exam Narrative: General: [No acute distress.] [Awake, alert, oriented x3.] [No pallor.] [No jaundice.] Oropharynx: Clear. Mucous membranes [moist]. Cardiovascular: [Regular rate and rhythm]. [No murmurs, gallops, or rubs]. Respiratory: [Clear to auscultation bilaterally. No wheezes or crackles]. Abdomen: Bowel sounds [present]. [Soft, nondistended, nontender]. Extremities: [No] pedal edema. [] Const: Vital Signs, click to edit/add: Vital Signs - 24 hr 02/17/22 12:00 02/17/22 16:10 02/17/22 19:03 Temperature 98 F 97.8 F Pulse Rate [Right Radial] 74 64 64 Respiratory Rate 16 16 16 Blood Pressure [Ri ght Arm] 129/80 116/66 131/72 Pulse Oximetry 92 97 98 02/17/22 23:30 02/18/22 05:00 02/18/22 08:14 Temperature 98.3 F 99.1 F 97.9 F Pulse Rate [Right Radial] 70 62 62 Respiratory Rate 16 16 14 Blood Pressure [Ri ght Arm] 140/86 H 114/67 138/80 Pulse Oximetry 95 90 96 Labs Labs: Laboratory Results - last 24 hr 02/17/22 06:05 Sodium 140 Potassium 2.8 L* Chloride 112 Carbon Dioxide 23 BUN 30 Creatinine 0.4 L Estimated Creat Clear 39.27 Estimated GFR 96 Glucose 78 Calcium 7.6 L Total Bilirubin 0.4 AST 25 ALT 17 Alkaline Phosphatase 66 Total Protein 4.9 L Albumin 2.8 L
[2022-02-18 09:46] LABS: Sodium* 140 mmol/L (135-149)
[2022-02-18 09:47] LABS: Alanine Aminotransferase* 17 U/L (4-35); Albumin* 2.8 g/dL (3.3-5.0); Alkaline Phosphatase* 66 U/L (40-150); Aspartate Amino Transferase* 25 U/L (12-35); Bilirubin Total* 0.4 mg/dL (0.1-1.5); Blood Urea Nitrogen* 30 mg/dL (7-30); Calcium* 7.6 mg/dL (8.4-10.6); Carbon Dioxide* 23 mmol/L (20-32); Chloride* 112 mmol/L (96-114); Creatinine* 0.4 mg/dL (0.5-1.5); Est. Creatinine Clearance* 39.27; Estimated Glomerular Filt Rate 96 ml/min; Glucose* 78 mg/dL (60-115); Potassium* 2.8 mmol/L (3.6-5.1); Total Protein* 4.9 g/dL (6.0-8.3)
[2022-02-18 09:58] LABS: Magnesium* 2.2 mg/dL (1.5-2.6)
[2022-02-18] MEDS: bisacodyL 10 MG SUPP.RECT PR (10:18)
--- NOTE | 2022-02-18 11:16 | PM.GSPN ---
Subjective Subjective Date Seen: 02/18/22 Interval history: Patient is doing very well this morning. She denies abdominal pain and feels like she is almost back to her baseline. She continues to pass gas, no bowel movement yet. She does feel hungry and tolerated clear liquids yesterday. Exam Narrative: Exam Narrative: General: Alert and oriented, no acute distress. Abdomen: Soft, nontender, nondistended with no guarding or rebound. Positive bowel sounds Const: Vital Signs, click to edit/add: Vital Signs - 24 hr 02/17/22 12:00 02/17/22 16:10 02/17/22 19:03 Temperature 98 F 97.8 F Pulse Rate [Right Radial] 74 64 64 Respiratory Rate 16 16 16 Blood Pressure [Ri ght Arm] 129/80 116/66 131/72 Pulse Oximetry 92 97 98 02/17/22 23:30 02/18/22 05:00 02/18/22 08:14 Temperature 98.3 F 99.1 F 97.9 F Pulse Rate [Right Radial] 70 62 62 Respiratory Rate 16 16 14 Blood Pressure [Ri ght Arm] 140/86 H 114/67 138/80 Pulse Oximetry 95 90 96 Labs/Imaging Labs Labs: BMP reviewed, low potassium with replacement per hospitalist Imaging Imaging: No new Progress Note: A&P Assessment and plan (1) Small bowel obstruction: Status: Acute Assessment and Plan: Patient is hospital day 3 with now resolved high-grade small bowel obstruction. Vital signs stable in abdomen is benign. I did recommend that the patient receive a suppository this morning to help stimulate for a bowel movement. Okay to slowly advanced diet. Anticipate discharge once patient is tolerating a regular diet and has had a bowel movement, likely this evening versus tomorrow. Surgery to sign off. Please call with any acute clinical changes, questions or concerns.
[2022-02-18 11:47] VITALS: BP 155/85; PULSE 65; RESP 18; TEMP 36.5; O2SAT 93
[2022-02-18] MEDS: POTASSIUM BICARB 25 MEQ EFFERVESCENT TAB PO ×3 (12:49→16:23)
--- NOTE | 2022-02-18 14:53 | P.DS_ITS ---
DS: Providers Provider Time Seen by Provider: 09:36 Date Seen: 02/18/22 Date of admission: 02/15/22 21:13 Primary care physician: Arabella Rodríguez MD Admitting Clinician: Jaret Ellis MD Consults: 02/15/22 20:57 Consult to Physical Therapy [CONS] Routine Comment: Reason(s) for PT Consult:: Evaluate and Treat Any Restrictions?:: No Restrictions 02/15/22 22:40 Consult to Physical Therapy [CONS] Routine Comment: Reason(s) for PT Consult:: Evaluate Ambulation Any Restrictions?:: No Restrictions Attending Physician on discharge: Jaret Ellis MD Date of Discharge: 02/18/22 DS: Diagnosis Discharge Diagnosis (1) Small bowel obstruction: Status: Acute (2) Hypokalemia: Status: Acute (3) History of atrial fibrillation: Status: Chronic (4) Chronic anticoagulation: Status: Chronic Problem details: apixaban for afib (5) Esophageal dysmotility: Status: Chronic (6) Hypertension: Status: Chronic DS: Summary Hospital Course Hospital Course: This is an 86-year-old female with history of bowel obstruction who was in her usual state of health when she started having abdominal discomfort with occasional nausea. This lasted a few days and she had a normal bowel movement within that time. On the morning of admission she woke up at 4:00 a.m. with abdominal cramping and retching that got progressively worse throughout the day. She was not able to eat, drink, or take her medications. She stopped passing gas or stool. Upon presentation she was found to have small-bowel obstruction. The ER provider discussed the case with Dr. Nascimento in the patient was admitted to the medical service from medical management. She had an NG tube placed for low intermittent suction, was kept NPO and given IV fluids. Is also given analgesics and antiemetics. Her home medications were held which included amiodarone, apixaban, antihypertensives, furosemide and potassium. Her small- bowel obstruction resolved over the next few days and today she is restarted on her usual medications, and she is tolerating in advance in her diet. If she does well she will be going home this evening. Of note her potassium was 2.8 this morning, likely secondary to holding her usual potassium replacement. She was given extra potassium orally and restarted on her usual home potassium. Status at Discharge Functional status at discharge: independent ambulation Overall status at discharge: patient is back to baseline Time Spent with Patient Time attestation: Total time spent providing and/or coordinating discharge services: Time spent: Less than 30 minutes Exam Narrative: Exam Narrative: General: No acute distress. Awake, alert, oriented x3. No pallor. No jaundice. Oropharynx: Clear. Mucous membranes moist. Cardiovascular: Regular rate and rhythm. No murmurs, gallops, or rubs. Respiratory: Clear to auscultation bilaterally. No wheezes or crackles. Abdomen: Bowel sounds present. Soft, nondistended, nontender. Const: Vital Signs, click to edit/add: Vital Signs - 24 hr 02/17/22 16:10 02/17/22 19:03 02/17/22 23:30 Temperature 97.8 F 98.3 F Pulse Rate [Right Radial] 64 64 70 Respiratory Rate 16 16 16 Blood Pressure [Ri ght Arm] 116/66 131/72 140/86 H Pulse Oximetry 97 98 95 02/18/22 05:00 02/18/22 08:14 02/18/22 11:47 Temperature 99.1 F 97.9 F 97.7 F Pulse Rate [Right Radial] 62 62 65 Respiratory Rate 16 14 18 Blood Pressure [Ri ght Arm] 114/67 138/80 155/85 H Pulse Oximetry 90 96 93 DS: Data Data Completed and Pending Labs on day of discharge: Labs from last 24 hours 02/18/22 02/17/22 06:05 06:05 Sodium 140 Cancelled Potassium 2.8 L* Cancelled Chloride 112 Cancelled Carbon Dioxide 23 Cancelled BUN 30 Cancelled Creatinine 0.4 L Cancelled Estimated Creat Clear 39.27 Cancelled Estimated GFR 96 Cancelled Glucose 78 Cancelled Calcium 7.6 L Cancelled Magnesium 2.2 Total Bilirubin 0.4 Cancelled AST 25 Cancelled ALT 17 Cancelled Alkaline Phosphatase 66 Cancelled Total Protein 4.9 L Cancelled Albumin 2.8 L Cancelled Additional Comments Additional comments: 02/15/2022 Ordering Physician: Primo Moreno M.D. Date of Service: 02/15/22 Procedure(s): CT abdomen pelvis w con Accession Number(s): [id number] cc: Arabella Rodríguez M.D.; Primo Moreno M.D.~ For Patients: As a result of the Cures Act, medical imaging exams and procedure reports are released immediately into your electronic medical record. You may view this report before your referring provider. If you have questions, please contact your health care provider. Indication: Abdominal pain history of small-bowel obstruction Technique: Contrast enhanced CT abdomen and pelvis Comparison: CT abdomen and pelvis 06/28/2020 Findings: Heart size is normal basilar atelectasis. No significant effusion. The gastric body and antrum is decompressed however there is suggestive wall thickening and mucosal enhancement. There may be sludge and/or stones in the gallbladder. The liver otherwise is unremarkable the spleen, adrenal glands unremarkable no abdominal aortic aneurysm. Pancreas unremarkable. Right renal cyst there is a cortical thinning of the right kidney. Duplicated collecting systems. Renal cysts additional too small to characterize low-attenuation lesions. Right hip arthroplasty causes streak artifact. Urinary bladder unremarkable. Dilated fluid-filled small bowel loops measuring up to 3.5 cm. Decompressed distal small bowel loops with transition point in the right lower quadrant. Slight twisting of the mesentery in the right lower quadrant, see series 4 images 35 to 46 . There is no free air seen. Small amount of perihepatic ascites. Small bowel anastomosis left upper abdomen. No suspicious bony lesions. Impression: 1. High-grade distal small-bowel obstruction with transition in the RLQ probably due to adhesions however there is slight twisting of the mesentery in the right lower quadrantwith volvulus not completely excluded. Surgical consultation recommended results called to Dr. Moreno on 02/15/22 at 7:20pm. 2. Suggestion of gastric wall thickening and mucosal enhancement along the body in the antrum of the stomach which is decompressed. Findings could be seen with gastritis or peptic ulcer disease. Please note that all CT scans at this facility use dose modulation, iterative reconstruction, and/or weight-based dosing when appropriate to reduce radiation dose to as low as reasonably achievable. Dictated by Kindra Khalil MD @ 02/15/2022 7:23:09 PM (Electronically Signed) Ordering Physician: Amrit Chairez M.D. Date of Service: 02/15/22 Procedure(s): XR chest 1V portable Accession Number(s): [id number] cc: Amrit Chairez M.D.; Arabella Rodríguez M.D.~ For Patients: As a result of the Century Cures Act, medical imaging exams and procedure reports are released immediately into your electronic medical record. You may view this report before your referring provider. If you have questions, please contact your health care provider. INDICATION: Post NG tube placement.. TECHNIQUE: Chest 1 views. COMPARISON: None. FINDINGS: Cardiovascular and mediastinum: Mild cardiomegaly. Likely atrial exclusion clip. Lungs and pleural spaces: Lungs are clear. No sign of infiltrate or mass. No sign of pleural effusion. No pneumothorax. Bones and soft tissues: No significant findings. Partially visualized contrast opacification of the left renal collecting system. Mild gaseous distention of the stomach and visualized bowel loops. Lines and tubes: NG tube is identified with distal tip and side port within the gastric body. IMPRESSION: NG tube distal tip and side port terminate in the gastric body.. Dictated by Oma Norman MD @ 02/15/2022 10:50:37 PM (Electronically Signed) 02/17/2022 EKG: Accelerated junctional rhythm, 117 beats per minute, left axis deviation, right bundle-branch block, septal infarct age undetermined. Discharge Plan Discharge Disposition: Home, Self-Care Date of Admission: 02/15/22 21:13 Attending Provider on Discharge: Yue Campos Consulting Providers: Vanessa Nascimento Primary Care Provider: Arabella Rodríguez Condition: Stable Anticipated Discharge Date/Time: 02/18/22 17:15 Discharge Medications: Continued polyethylene glycol 3350 17 gram/dose powder 17 g PO .Daily as needed PRN0RF lactic acid Cream topical 0RF dicyclomine 10 mg capsule 1 - 2 mg PO .Daily as needed PRN0RF oxybutynin chloride 10 mg tablet extended release 24 hr 10 mg PO DAILY 0RF apixaban 5 mg tablet 5 mg PO BID 0RF loperamide 2 mg capsule PO .As Needed PRN0RF estradiol 0.01 % (0.1 mg/gram) cream 1 appful vaginal .Twice Weekly 0RF hydrochlorothiazide 25 mg tablet 25 mg PO DAILY 0RF hydrocortisone 2.5 % cream with applicator 2.5 ea topical BID 0RF furosemide 20 mg tablet 20 mg PO DAILY 0RF amiodarone 200 mg tablet 200 mg PO DAILY 0RF lisinopril 10 mg tablet 10 mg PO DAILY 0RF glucosamine sulfate 500 mg capsule 1,000 mg PO DAILY 0RF Cranberry Plus Vitamin C 140-100 mg capsule 1 cap PO DAILY 0RF potassium chloride 20 mEq tablet,ER particles/crystals 20 meq PO BID 0RF Discharge Orders: Discharge Order (Routine); Ordered 02/18/22 Ordered By: Yue Campos Patient Education: Hypokalemia (DC), Bowel Obstruction (DC) Activity Level: No Restrictions Discharge Diet: Regular Follow Up Appointments: Arabella Rodríguez MD [Primary Care Provider] - Forms: [facility] Info Instructions
[2022-02-18 15:04] VITALS: BP 135/73; PULSE 60; RESP 16; TEMP 36.4; O2SAT 98
--- NOTE | 2022-02-18 18:40 | PC.NURSE ---
Discharge:Patient independent, alert and oriented. Tolerating regular diet at time of discharge. IVs removed from bilat arms, catheter tips intact. Denies pain. Is passing gas and has had x1 hard, continent BM. Denies nausea, no emesis today. Vitals stable and WNL. Patient discharged from unit @ 1830 via wheelchair. Daughter picked up from ED entrance. Discharged to home.
== END 2022-02-18 18:30 | disposition home or self-care (01) | DRG 389 ==
LOC: ED 17:51 → MEDSURG 21:14
PROVIDERS: Family Medicine; Internal Medicine; Admitting Provider Internal Medicine; Emergency Provider Student in an Organized Health Care Education/Training Program; PCP Internal Medicine; Visit Provider Internal Medicine
DX: K56.50 Intestinal adhesions [bands], unspecified as to partial versus complete obstruction (principal); I45.2 Bifascicular block; I49.2 Junctional premature depolarization; E87.6 Hypokalemia; I10 Essential (primary) hypertension; I48.91 Unspecified atrial fibrillation; F32.A Depression, unspecified; K58.9 Irritable bowel syndrome, unspecified; Z79.01 Long term (current) use of anticoagulants; K22.89 Other specified disease of esophagus
CPT/HCPCS: 36415; 51798; 71045; 74177; 80053; 80069; 82803; 83605; 83690; 83735; 85025; 86140; 87635; 97110; 97116; 97161; 99283; 99285; A9270; J2270; J2405; J7030; Q9967

== ENCOUNTER 2023-05-26 12:25 | Outpatient (REF) | payer MEDICARE, BC, SELFPAY | END 2023-05-26 12:26 | disposition home or self-care (01) | LOC: NFLDREF 12:25 | PROVIDERS: PCP Internal Medicine; Referring Provider Internal Medicine; Visit Provider Nurse Practitioner Family | DX: R35.0 Frequency of micturition (principal); N39.0 Urinary tract infection, site not specified | CPT/HCPCS: 87086; 87186 ==

== ENCOUNTER 2023-08-19 12:51 | Outpatient (CLI) | payer MEDICARE, BC, SELFPAY | END 2023-08-19 12:52 | disposition home or self-care (01) | LOC: NFLDREF 08-20 09:11 | PROVIDERS: PCP Family Medicine; Referring Provider Internal Medicine; Visit Provider Nurse Practitioner | DX: R30.0 Dysuria (principal); N30.01 Acute cystitis with hematuria | CPT/HCPCS: 87086 ==